=== PATIENT | female | born 1935 | race Caucasian/White ===

== ENCOUNTER 2021-09-13 11:53 | Inpatient (IN) | payer MEDICARE ==
[~2021-09-13] VITALS: Ht 157.5 cm; Wt 37.2 kg
[~2021-09-13 11:53] MED LIST: DULERA 100 MCG8.8 GM INH; ECOTRIN81 MG PO; ENSURE HIGH PR237 ML PO; IPRAT-ALBUT 0.5-3 ML INH; THERAGRAN M TAB1 EA PO
[2021-09-13 12:37] LABS: HEMOGLOBIN 14.7 gm/dl (12.3-15.3); RED BLOOD COUNT 4.73 M/UL (4.00-5.10); WHITE BLOOD COUNT 3.6 K/UL (4.5-11.0)
[2021-09-13 12:56] LABS: BUN/CREATININE RATIO 37 (0-10)
[2021-09-13] MEDS ORDERED: DAILY VALUE1 EACH PO (18:37)
[2021-09-14 06:42] LABS: HEMOGLOBIN 13.6 gm/dl (12.3-15.3); RED BLOOD COUNT 4.43 M/UL (4.00-5.10)
[2021-09-14 06:45] LABS: WHITE BLOOD COUNT 2.1 K/UL (4.5-11.0)
[2021-09-14 06:59] LABS: BUN/CREATININE RATIO 37 (0-10)
[2021-09-14] MEDS ORDERED: DOXYCYCLINE HY100 M2 PO (11:47)
[2021-09-14] MEDS ORDERED: DECADRON6 MG PO (11:47)
[2021-09-14] MEDS ORDERED: IPRAT-ALBUT 0.5-3 ML NEB (11:47)
[2021-09-14] MEDS ORDERED: BUDESONIDE0.5 MG/2 M NEB (11:47)
[2021-09-14] MEDS ORDERED: BENZONATATE100 MG PO (11:50)
== END 2021-09-14 13:02 | disposition home or self-care (01) | DRG 177 ==
LOC: ER1 11:53 → M/S 17:01 → CDU 17:01 → M/S 21:07
PROVIDERS: Physician Assistant Medical; ADMIT Internal Medicine
PROC: 8E0ZXY6 Isolation (ICD-10-PCS; principal; 2021-09-13)
PROC: 3E0333Z Introduction of Anti-inflammatory into Peripheral Vein, Percutaneous Approach (ICD-10-PCS; 2021-09-13)
PROC: XW033E5 Introduction of Remdesivir Anti-infective into Peripheral Vein, Percutaneous Approach, New Technology Group 5 (ICD-10-PCS; 2021-09-13)
DX: U07.1 COVID-19 (principal); J96.21 Acute and chronic respiratory failure with hypoxia; J96.22 Acute and chronic respiratory failure with hypercapnia; J12.82 Pneumonia due to coronavirus disease 2019; E43 Unspecified severe protein-calorie malnutrition; J44.1 Chronic obstructive pulmonary disease with (acute) exacerbation; Z68.1 Body mass index [BMI] 19.9 or less, adult; F17.210 Nicotine dependence, cigarettes, uncomplicated; D69.6 Thrombocytopenia, unspecified; Z99.81 Dependence on supplemental oxygen; Z90.11 Acquired absence of right breast and nipple; Z71.6 Tobacco abuse counseling; Z85.3 Personal history of malignant neoplasm of breast
CPT/HCPCS: 36415; 36600; 71045; 80053; 82550; 82553; 82728; 82803; 83874; 84439; 84443; 84484; 85025; 86140; 93005; 94640; 94664; 94760; 96374; 99285; J0696; J1100; J1650; J7030; U0002